=== PATIENT | female | born 1955 | race Two or more races ===

== ENCOUNTER 2023-04-11 16:09 | Emergency (ER) | payer OTHER ==
[~2023-04-11] VITALS: Ht 152.4 cm; Wt 83.9 kg
[2023-04-11] MEDS ORDERED: CANDESARTAN-HC1 EACH (16:20)
[2023-04-11] MEDS ORDERED: ATORVASTATIN CA10 MG (16:20)
[2023-04-11] MEDS ORDERED: NEURONTIN800 MG (16:21)
[2023-04-11] MEDS ORDERED: CYMBALTA60 MG (16:21)
[2023-04-11] MEDS ORDERED: AMLODIPINE-OLM1 EAC2 (16:21)
[2023-04-11] MEDS ORDERED: ABILIFY2 MG (16:21)
[2023-04-11] MEDS ORDERED: TOPROL XL50 M1 (16:21)
[2023-04-11] MEDS ORDERED: CLONAZEPAM0.5 MG (16:22)
== END 2023-04-11 21:53 | disposition home or self-care (01) ==
LOC: ER 16:09
DX: G43.809 Other migraine, not intractable, without status migrainosus (principal); I10 Essential (primary) hypertension; Z88.8 Allergy status to other drugs, medicaments and biological substances
CPT/HCPCS: 96365; 96372; 99283; J1885; J2765

== ENCOUNTER 2023-09-30 10:38 | Outpatient (CLI) | payer OTHER ==
[~2023-09-30 10:38] MED LIST: ABILIFY2 MG; AMLODIPINE-OLM1 EAC2; ATORVASTATIN CA10 MG; CANDESARTAN-HC1 EACH; CLONAZEPAM0.5 MG; CYMBALTA60 MG; NEURONTIN800 MG; TOPROL XL50 M1
== END 2023-09-30 10:39 | disposition home or self-care (01) ==
LOC: SONOGRAMA 10:38
PROVIDERS: ATTEND Pathology Anatomic Pathology & Clinical Pathology
DX: D34 Benign neoplasm of thyroid gland (principal); E78.9 Disorder of lipoprotein metabolism, unspecified; E04.1 Nontoxic single thyroid nodule

== ENCOUNTER 2024-02-26 13:13 | Outpatient (CLI) | payer OTHER | END 2024-02-26 13:18 | disposition home or self-care (01) | LOC: RAD 13:13 | DX: R07.2 Precordial pain (principal) ==

== ENCOUNTER 2024-11-29 08:54 | Emergency (ER) | payer OTHER ==
[~2024-11-29] VITALS: Ht 160 cm; Wt 81.6 kg
[2024-11-29] MEDS ORDERED: FAMOTIDINE/PF 20 MG/2 ML VIAL ONE (09:48)
[2024-11-29] MEDS ORDERED: FAMOTIDINE/PF 20 MG/2 ML VIAL IV PUSH ONE (10:00)
[2024-11-29 10:21] LABS: BASO % 0.4 % (0.1-1.2); EOS # 0.01 (0.04-0.54); EOS % 0.1 % (0.7-7.0); HEMATOCRIT 27.8 % (34.1-44.9); HEMOGLOBIN 9.2 g/dL (11.2-15.7); LYMPH # 1.08 (1.18-3.74); LYMPH % 14.7 % (19.3-53.1); MEAN CORPUSCULAR HEMOGLOBIN 27.6 pg (25.6-32.2); MONO # 1.06 (0.24-0.82); NEUT # 5.14 (1.56-6.13); PLATELET COUNT 353 K/uL (163-369); RED BLOOD COUNT 3.33 M/uL (3.93-5.22); RED CELL DISTRIBUTION WIDTH 15.4 % (11.6-14.4)
[2024-11-29 10:26] LABS: MONO % 14.4 % (4.7-12.5)
[2024-11-29 10:56] LABS: BILIRUBIN TOTAL 0.35 mg/dL (0.3-1.2); BILIRUBIN,CONJUGATED 0.13 mg/dL (0.0-0.2); BILIRUBIN,UNCONJUGATED 0.22 mg/dL (0.0-0.6); CALCIUM 8.7 mg/dL (8.5-10.1); CREATININE SERUM 0.83 mg/dL (0.55-1.02); GFR 68.36; GLOBULINA 3.4 G/DL (2.4-3.5); TOTAL PROTEIN 6.4 gm/dL (6.4-8.2)
[2024-11-29 11:24] LABS: POTASSIUM 2.74 mEq/L (3.5-5.1)
[2024-11-29] MEDS ORDERED: POTASSIUM CHLORIDE 10 MEQ CAPSULE PO ONE (11:45)
[2024-11-29] MEDS ORDERED: ONDANSETRON 4 MG TAB.RAPDIS PO ONE (17:34)
[2024-11-29] MEDS ORDERED: ONDANSETRON HCL 2 MG/ML VIAL ONE (17:48)
[2024-11-30] MEDS ORDERED: ONDANSETRON HCL 2 MG/ML VIAL IV STA (02:59)
[2024-11-30] MEDS ORDERED: FAMOTIDINE/PF 20 MG/2 ML VIAL IV PUSH STA (02:59)
[2024-11-30] MEDS ORDERED: FAMOTIDINE/PF 20 MG/2 ML VIAL ONE (03:02)
[2024-11-30] MEDS ORDERED: ONDANSETRON HCL 2 MG/ML VIAL ONE (03:02)
[2024-11-30] MEDS ORDERED: IRON 100-VITAM1 EACH PO (15:30)
[2024-11-30] MEDS ORDERED: POTASSIUM BICARBONATE/CIT AC 25 MEQ TABLET.EFF PO ONE (15:30)
== END 2024-11-30 16:53 | disposition home or self-care (01) ==
LOC: ER 08:54
PROVIDERS: Emergency Medicine
DX: K29.70 Gastritis, unspecified, without bleeding (principal); I10 Essential (primary) hypertension; Z88.8 Allergy status to other drugs, medicaments and biological substances
CPT/HCPCS: 36415; 93005; 96365; 99283; J2405; J3490